=== PATIENT | male | born 1960 | race Caucasian/White ===

== ENCOUNTER 2022-05-05 14:32 | Emergency (ER) | payer OTHER ==
[2022-05-05 15:46] LABS: Hemoglobin 13.5 g/dL (14.0-18.0); Mean Corpuscular HGB CONC 33.8 g/dL (32.0-36.0); Mean Corpuscular Hemoglobin 30.1 pg (27.0-31.0); Mean Corpuscular Volume 88.9 fl (78.0-98.0); RBC Distribution Width 12.9 % (11.5-14.5); Red Blood Cell (RBC) Count 4.49 mill/uL (4.70-6.10); White Blood Cell (WBC) Count 5.4 10x3/uL (4.8-10.8)
[2022-05-05 15:52] LABS: #Eosinphils 0.2 thou/uL (0.0-0.7); #Lymphocytes 1.1 thou/uL (1.20-3.40); #Monocytes 0.5 thou/uL (0.11-0.59); #Neutrophils 3.7 thou/uL (1.40-6.50); %Basophils 0.2 % (0.0-1.0); %Lymphocytes 19.6 % (21.0-51.0); %Monocytes 8.2 % (0.0-10.0)
[2022-05-05 16:05] LABS: ALT (SGPT) 59 U/L (8-55); AST (SGOT) 39 U/L (5-34); Albumin 3.8 g/dL (3.5-5.0); Alkaline Phosphatase 142 U/L (40-110); Anion Gap 15 mmol/L (10-20); BUN (Urea Nitrogen) 16 mg/dL (8.4-25.7); Bilirubin, Total 0.8 mg/dL (0.2-1.2); Calc. Creatinine Clearance 0 mL/min (70-130); Calcium 9.3 mg/dL (7.8-10.44); Carbon Dioxide 24 mmol/L (22-29); Chloride 105 mmol/L (98-107); Estimated GFR 75; Globulin 3.3 g/dL (2.4-3.5); Glucose 165 mg/dL (70-105); Potassium 3.9 mmol/L (3.5-5.1); Protein, Total 7.1 g/dL (6.0-8.3); Sodium 140 mmol/L (136-145)
[2022-05-05 16:10] LABS: Mean Platelet Volume 10.8 fL (7.4-10.4); Platelet Count 100 10x3/uL (130-400); Platelet Morphology Comment Appears Decreased; RBC Morphology Normal
[2022-05-05] MEDS ORDERED: Lisinopril 10 MG TAB ONE ×2 (18:29→18:32)
== END 2022-05-05 18:50 | disposition home or self-care (01) ==
LOC: ERS 14:32
DX: R20.0 Anesthesia of skin (principal); R00.2 Palpitations; I10 Essential (primary) hypertension; E11.9 Type 2 diabetes mellitus without complications
CPT/HCPCS: 70450; 71045; 80053; 84484; 85025; 93005

== ENCOUNTER 2022-06-17 12:07 | Outpatient (CLI) | payer BC ==
[2022-06-17] MEDS ORDERED: Iopamidol 370 76% 100 ML VIAL ONE (15:01)
== END 2022-06-17 12:08 | disposition home or self-care (01) ==
LOC: CT 12:07
PROVIDERS: ATTEND Internal Medicine Cardiovascular Disease
DX: S06.5XAA Traumatic subdural hemorrhage with loss of consciousness status unknown, initial encounter (principal); R20.0 Anesthesia of skin; J34.89 Other specified disorders of nose and nasal sinuses
CPT/HCPCS: 70470; Q9967

== ENCOUNTER 2025-03-20 11:34 | Outpatient (CLI) | payer OTHER | END 2025-03-20 11:35 | disposition home or self-care (01) | LOC: SCSRAD 11:34 | PROVIDERS: ATTEND Nurse Practitioner Family | DX: S99.921A Unspecified injury of right foot, initial encounter (principal); S92.421A Displaced fracture of distal phalanx of right great toe, initial encounter for closed fracture; S92.531A Displaced fracture of distal phalanx of right lesser toe(s), initial encounter for closed fracture ==